=== PATIENT | male | born 1970 | race Caucasian/White ===

== ENCOUNTER → 2020-11-10 | Outpatient (CLI) | payer BC, OTHER ==
[2016-08-02 19:30] VITALS: BP 189/116
[~2020-11-10] MED LIST: ACET325T9 PO; CARV3.12 PO; CEPH500C PO; CLIN300C9 PO; Diphenhydramine Hcl PO; LISI20TA18 PO
--- NOTE | 2020-11-10 15:27 | RAD ---
COMPLETE RENAL ULTRASOUND Indication: Proteinuria. Comparison: CT lumbar spine without contrast May 13, 2015. Procedure: Transabdominal ultrasound images are obtained of the kidneys and bladder. Findings: Study is limited due to patient body habitus. The right kidney is heterogeneous and there is loss of corticomedullary differentiation. The right ki dney is atrophic measuring 8.8 cm in length. There is no obvious right hydronephrosis. The left kidne y measures 13.6 cm. There is normal cortical echotexture and corticomedullary differentiation of the left kidney. There is no left hydronephrosis. No obvious urinary bladder wall thickening is identified. The prevoid volume is calculated to be 285 mL. Ureteral jets are not identified. The IVC is patent. The visualized abdominal aorta is normal caliber. IMPRESSION: The right kidney is atrophic and heterogeneous with loss of corticomedullary differentiation. An infi ltrative mass cannot be excluded. Recommend CT or MR abdomen, with contrast if possible. Electronically signed by: Duc Rivers MD (11/10/2020 3:25 PM) [id number]
== END ==
LOC: US 09:32
PROVIDERS: ATTEND Family Medicine
DX: N26.1 Atrophy of kidney (terminal) (principal); R80.1 Persistent proteinuria, unspecified
CPT/HCPCS: 76770

== ENCOUNTER → 2020-11-17 | Outpatient (CLI) | payer BC ==
[2016-08-02 19:30] VITALS: BP 189/116
[~2020-11-17] MED LIST changes: +IOHEXOL 350 MG/ML 100 ML VIAL. IV ONE
--- NOTE | 2020-11-17 14:39 | RAD ---
CT CT of the abdomen and pelvis with and without contrast, multi phase renal protocol study 11/17/2020 2:18 PM Indication: Reason: ABNORMAL FINDINGS ON DIAGNOSTIC IMAGIN OF RIGHT KIDNEY / Spl. Instructions: OMNI 350 100CC GIVEN, CREAT 1.2/GFR 70, NO ALLERGIES / History: Comparison study: Ultrasound of the kidneys November 10, 2020. Technique:: CT imaging of the abdomen and pelvis was performed without contrast,, with contrast, and in the delayed phase. FINDINGS: The partially visualized lung bases demonstrate no acute abnormality. Right renal morphology is abnormal with multiple lobulations, and overall decreased size. Punctate calcification is seen in the inferior pole. No abnormal enhancement or mass is identified. D elayed imaging demonstrates filling of the collecting system in an expected fashion with a normal cathy earance of the right ureter. The appearance is suggestive of a remote insult. The left kidney has a d uplicated collecting system with 2 essentially equally size ureters fusing distally just before enter ing the bladder. No nephrolithiasis or obstruction is seen on either side. The liver and gallbladder are unremarkable. The adrenal glands, spleen, and pancreas are unremarkable . Small accessory splenule is noted. There is no evidence of bowel obstruction. No inflammatory changes involving the bowel identified. 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 Most commonly incidental. The colon lies in the left abdomen and the small bowel right abdomen. The duodenal jejunal junction is malpositioned. T he SMA lies just to the right of the SMV. Mildly prominent iliac and inguinal lymphadenopathy is seen bilaterally. No acute osseous changes are identified. Significant degenerative changes of the lumbar spine are seen. Prominent disc osteophyte complexes are seen at and L2-L3 and L4-L5 with probable mild spinal stenosis as a result. IMPRESSION: 1. Abnormal morphology of the right kidney is present, though no mass is identified. The appearance i s likely favors a chronic/remote insult such as infarct or infection 2. Duplicated left renal collecting system incidentally noted. 3. Congenital intestinal malrotation, incidentally detected. Recommend patient education and consider ation of routine surgical consultation 4. Mildly prominent bilateral inguinal and iliac adenopathy. 5. 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 Automated exposure control 2. Adjustment of the mA and/or kV according to patient size 3. Use of iterative reconstruction technique Electronically signed by: Jamel Mg MD (11/17/2020 2:36 PM) [id number]
== END ==
LOC: CT 08:46
PROVIDERS: ATTEND Family Medicine
DX: R93.421 Abnormal radiologic findings on diagnostic imaging of right kidney (principal); Q63.0 Accessory kidney; G12.9 Spinal muscular atrophy, unspecified; R59.0 Localized enlarged lymph nodes; M47.816 Spondylosis without myelopathy or radiculopathy, lumbar region; M48.061 Spinal stenosis, lumbar region without neurogenic claudication; M25.78 Osteophyte, vertebrae; Q43.3 Congenital malformations of intestinal fixation
CPT/HCPCS: 74178; Q9967